=== PATIENT | male | born 1985 | race African-American/Black ===

== ENCOUNTER 2020-07-28 10:04 | Emergency (ER) | payer MEDICAID ==
[~2020-07-28] VITALS: Ht 175.3 cm; Wt 88.5 kg
[2020-07-28] MEDS ORDERED: Ketorolac 30mg Inj IM ONE (10:45)
--- NOTE | 2020-07-28 10:50 | Emergency Room Report ---
History of Present Illness General Chief Complaint: Lower Extremity Injury Source: Patient Present Illness HPI Patient is a 34-year-old male denies any significant past medical history who presents to the ER complaining of left big toe pain for the past few days. Patient states that he had a steak dinner tonight before he woke up with pain. He denies any trauma. He states that he tried using a topical cream but complains of persistent pain. He denies any fever or chills. He denies any history of similar symptoms in the past. He denies any lower leg or calf pain. He denies any chest pain or shortness of breath. Allergies: Coded Allergies: No Known Allergies (Unverified , 07/28/20) COVID-19 Screening Contact w/high risk pt: No Experienced COVID-19 symptoms?: No COVID-[address] SCAN TECHNOLOGIST: No Patient History Reviewed Nursing Documentation: PMH: Agreed; PSxH: Agreed Review of Systems All Other Systems: negative except mentioned in HPI Physical Exam Vital Signs Date Time Temp Pulse Resp B/P (MAP) Pulse Ox O2 Delivery O2 Flow Rate FiO2 07/28/20 10:37 98.1 76 18 130/70 (90) 98 Room Air Sp02 EP Interpretation: reviewed, normal General Appearance: no apparent distress, alert, GCS 15, non-toxic Head: normocephalic, atraumatic Eyes: bilateral eye normal inspection, bilateral eye PERRL ENT: hearing grossly normal, normal pharynx, no angioedema, normal voice Neck: full range of motion, supple/symm/no masses Respiratory: chest non-tender, lungs clear, normal breath sounds, speaking full sentences Cardiovascular #1: regular rate, rhythm, no edema Gastrointestinal: normal bowel sounds, non tender, soft, non-distended, no guarding, no rebound Rectal: deferred Musculoskeletal: normal range of motion, other - Left big toe tenderness to palpation along the metatarsal phalangeal joint with surrounding edema and erythema no crepitus normal range of motion Neurologic: balloon sander III-XII nml as tested, oriented x3 Psychiatric: no suicidal/homicidal ideation Skin: no rash Lymphatic: no adenopathy Medical Decision Making Diagnostic Impression: Primary Impression: Gout ER Course X-ray demonstrates no acute fractures. Patient has no calf tenderness it is only tender along the first metatarsal. Story and physical exam consistent with gout. Unlikely cellulitis but will start patient on Keflex in case. Patient advised to follow-up with his primary care physician for further treatment and evaluation. After discussing risks and benefits of further diagnostics, treatment plans, as well as indications for and risks of admission, the patient is agreeable to being discharged home. I have explained that their evaluation and treatment in the emergency department today is an important step towards them achieving better health but that their evaluation today is not intended to replace further evaluation and treatment by a physician in their local clinic. I have explained that while the current findings suggest no immediate life threatening emergency they will require further evaluation and treatment by a physician of their choice in their area. They understand that it will be necessary for them to review the final reports of their ED visit with their clinic physician. We have reviewed indications for return to the Emergency Department. I have explained that additional time may need to pass and/or additional testing as an outpatient may be necessary before a definitive diagnosis can be made. They tell me they are willing to follow up as instructed within the timeframe I recommend. They appear to understand what we discussed. Additionally they understand that if they are unable to be seen by an outpatient physician they are welcome, and in fact should, return to the Emergency Department for a repeat evaluation. The patient is stable at time of discharge. Other X-Ray Diagnostic Results Other X-Ray Diagnostic Results : X-Ray ordered: Left foot # of Views/Limited Vs Complete: 3 View Indication: Pain EP Interpretation: Yes Interpretation: no dislocation, no soft tissue swelling, no fractures Impression: No acute disease Electronically Signed by: Marlin Monroe MD Last Vital Signs Date Time Temp Pulse Resp B/P (MAP) Pulse Ox O2 Delivery O2 Flow Rate FiO2 07/28/20 10:37 98.1 76 18 130/70 (90) 98 Room Air Disposition: HOME, SELF-CARE Condition: Stable Scripts Naproxen* (NAPROXEN*) 500 Mg Tablet 500 MG ORAL TWICE A DAY, #14 TAB Prov: Marlin Monroe M.D. 07/28/20 Cephalexin* (KEFLEX*) 500 Mg Capsule 500 MG ORAL EVERY 6 HOURS for 7 Days, CAP Prov: Marlin Monroe M.D. 07/28/20 Referrals: NOT CHOSEN [facility]/,REFERRING (PCP) Additional Instructions: The patient was provided with discharge instructions, notified to follow-up with a primary care doctor and or specialist in the next 24-48 hours, and to return to the ED if they have worsening of their symptoms. Please note that this report is being documented using [employer] technology. This can lead to erroneous entry secondary to incorrect interpretation by the dictating instrument. Marlin Monroe M.D. Jul 28, 2020 10:50
[2020-07-28] MEDS ORDERED: CEPHALEXIN500 MG ORAL (11:00)
[2020-07-28] MEDS ORDERED: Cephalexin 500mg cap ORAL ONE (11:00)
[2020-07-28] MEDS ORDERED: NAPROXEN500 M2 ORAL ×2 (11:00→11:04)
--- NOTE | 2020-07-28 11:14 | NUR ---
came to er complaints of left foot pain denies any injury meds given as orderd x-rays completed
--- NOTE | 2020-07-28 11:32 | Diagnostic Imaging Report ---
EXAM: XR Left Foot Complete, 3 or More Views CLINICAL HISTORY: PAIN TECHNIQUE: Frontal, lateral and oblique views of the left foot. COMPARISON: None FINDINGS: Bones/joints: No displaced fracture or dislocation identified. Joint space is maintained. No bony lesion. Soft tissues: Soft tissue swelling. IMPRESSION: No displaced fracture or dislocation identified.
--- NOTE | 2020-07-28 11:50 | NUR ---
Discharged home with instruction and rx follow up with pmd
[2020-07-28 11:51] VITALS: BP 130/70
== END 2020-07-28 11:54 | disposition home or self-care (01) ==
LOC: EMR 10:46
DX: M10.9 Gout, unspecified (principal)
CPT/HCPCS: 73630; 96372; J1885; Z7502; 99283